=== PATIENT | male | born 1965 | race Caucasian/White ===

== ENCOUNTER 2020-07-31 23:51 | Inpatient (IN) | payer OTHER ==
[~2020-07-31] VITALS: Ht 182.9 cm; Wt 98.2 kg
[2020-08-01] MEDS ORDERED: PRILOSEC OTC20 MG PO (02:19)
[2020-08-01 02:36] LABS: HEMOGLOBIN 13.1 gm/dl (14.0-17.5); RED BLOOD COUNT 4.29 M/UL (4.20-5.50); WHITE BLOOD COUNT 10.3 K/UL (4.5-11.0)
[2020-08-01 03:47] LABS: BUN/CREATININE RATIO 17 (0-10)
[2020-08-01] MEDS ORDERED: ATORVASTATIN CA20 MG PO (10:27)
[2020-08-01] MEDS ORDERED: LISINOPRIL2.5 MG PO (10:35)
[2020-08-01] MEDS ORDERED: LOPRESSOR 25 MG25 MG PO (10:35)
[2020-08-01] MEDS ORDERED: ASPIRIN CHEWABL81 MG PO (10:35)
== END 2020-08-01 12:32 | disposition short-term general hospital (02) | DRG 282 ==
LOC: PROG CARE 08-01 02:05
PROVIDERS: ADMIT Internal Medicine
PROC: B2161ZZ Fluoroscopy of Right and Left Heart using Low Osmolar Contrast (ICD-10-PCS; principal; 2020-08-01)
PROC: 4A023N7 Measurement of Cardiac Sampling and Pressure, Left Heart, Percutaneous Approach (ICD-10-PCS; 2020-08-01)
DX: I21.4 Non-ST elevation (NSTEMI) myocardial infarction (principal); K21.9 Gastro-esophageal reflux disease without esophagitis; R07.9 Chest pain, unspecified; Z72.0 Tobacco use; Z90.49 Acquired absence of other specified parts of digestive tract; Z82.49 Family history of ischemic heart disease and other diseases of the circulatory system; I25.10 Atherosclerotic heart disease of native coronary artery without angina pectoris
CPT/HCPCS: ECHO; 80053; 80061; 80307; 82550; 82553; 83036; 84439; 84443; 84484; 84550; 85027; 85610; 85730; 93005; 93306; 99152; C1769; C1894; J1644; J2250; J3010; J7040; Q9967

== ENCOUNTER → 2020-09-09 | Outpatient (CLI) | payer OTHER ==
[~2020-09-09] MED LIST: ASPIRIN CHEWABL81 MG PO; ATORVASTATIN CA20 MG PO; LISINOPRIL2.5 MG PO; LOPRESSOR 25 MG25 MG PO; PRILOSEC OTC20 MG PO
== END ==
LOC: EXRD 08:38
DX: Z00.00 Encounter for general adult medical examination without abnormal findings (principal); J98.11 Atelectasis; J90 Pleural effusion, not elsewhere classified
CPT/HCPCS: 71046